=== PATIENT | male | born 1960 | race Caucasian/White ===

== ENCOUNTER 2019-03-08 11:00 | Inpatient (IN) ==
[2019-03-08] MEDS ORDERED: Ketorolac 15 MG/ML VIAL IVP STA (11:23)
[2019-03-08 11:57] LABS: Basophils % 0.3 %; Eosinophils # 0.2 K/mcL (0.0-0.6); Eosinophils % 1.8 %; Hematocrit 46.5 % (37.5-50.1); Hemoglobin 16.5 g/dL (12.9-16.9); Immature Granulocytes % 0.3 % (0-4); Lymphocytes # 2.2 K/mcL (0.6-4.6); Lymphocytes % 24.1 %; Mean Corpuscular HGB Conc 35.5 g/dL (31.6-35.5); Mean Platelet Volume 10.6 fL (9.4-12.4); Monocytes # 0.5 K/mcL (0.0-1.3); Neutrophils # 6.1 K/mcL (1.6-8.9); Platelet Count 165 K/mcL (140-400); Red Cell Distribution Width 12.5 % (11.5-14.5); Segmented Neutrophils % 67.5 %
[2019-03-08 12:23] LABS: BUN/Creatinine Ratio 9 (6-26); Blood Urea Nitrogen 9 mg/dL (8-23); Calcium 9.8 mg/dL (8.6-10.3); Carbon Dioxide 24 mEq/L (23-29); Chloride 101 mEq/L (98-107); Glucose 227 mg/dL (70-105); Osmolality,Calculated 282 (280-300); Potassium 4.4 mEq/L (3.5-5.1); Sodium 133 mEq/L (136-145); Troponin I 0.47 ng/mL (< 0.04); eGFR For African Americans > 60 (> 60); eGFR For Non-African Americans > 60 (> 60)
[2019-03-08] MEDS ORDERED: *HR* FentaNYL (PF) 100 MCG/2 ML VIAL IVP ONE (12:33)
[2019-03-08] MEDS ORDERED: *HR* Heparin 5,000 UNIT/ML VIAL IVP ONE (12:39)
[2019-03-08] MEDS ORDERED: *HR* Heparin 5,000 UNIT/ML VIAL IVP PRN ×2 (12:39)
[2019-03-08] MEDS: Heparin 25,000 UNIT/250 ML D5W 25,000 UNIT/250 ML IV.SOLN IVC SCH (13:27)
[2019-03-08] MEDS ORDERED: Nitroglycerin 1 INCH/GM PACKET TP ONE (13:28)
[2019-03-08 13:43] LABS: Heparin anti-factor XA UFH 0.03 IU/mL (0.30-0.70); INR 1.2; Prothrombin Time 13.2 Seconds (9.4-12.1)
[2019-03-08] MEDS ORDERED: Morphine Sulfate 2 MG/ML SYRINGE IVP PRN (15:09)
[2019-03-08] MEDS ORDERED: Dextrose Gel 15 GM/37.5 ML TUBE PO PRN ×2 (15:12)
[2019-03-08] MEDS ORDERED: D5% in Water 1,000 ML IVC PRN (15:12)
[2019-03-08] MEDS ORDERED: *HR* Dextrose 50 % in Water (Syg) 50 ML SYRINGE IVP PRN (15:12)
[2019-03-08] MEDS: Acetaminophen 325 MG TABLET PO SCH (16:28)
[2019-03-08] MEDS: Insulin LISPRO 300 UNITS/3 ML VIAL SQ SCH ×2 (16:33→20:11)
[2019-03-08 16:44] LABS: Chol/HDL Ratio 4.5 (0-4.9)
[2019-03-08] MEDS ORDERED: *HR* FentaNYL (PF) 100 MCG/2 ML VIAL ONE (17:18)
[2019-03-08] MEDS: *HR* FentaNYL (PF) 100 MCG/2 ML VIAL IVP ONE ×2 (17:26→17:28)
[2019-03-08] MEDS ORDERED: Nitroglycerin 0.4 MG TAB.SUBL SL ONE (21:43)
[2019-03-08] MEDS: Nitroglycerin 0.4 MG TAB.SUBL SL PRN ×3 (21:46→21:57)
[2019-03-08] MEDS ORDERED: Morphine Sulfate 2 MG/ML SYRINGE IVP ONE (23:36)
[2019-03-09] MEDS: Acetaminophen 325 MG TABLET PO SCH ×4 (00:40→17:27)
[2019-03-09] MEDS: Insulin LISPRO 300 UNITS/3 ML VIAL SQ SCH ×4 (08:15→20:13)
[2019-03-09 09:15] LABS: Estimated Average Glucose 220 mg/dl
[2019-03-09] MEDS ORDERED: *HR* Heparin 10,000 UNIT/10 ML VIAL ONE (11:43)
[2019-03-09] MEDS ORDERED: Heparin 1,000 UNITS/500 mL 500 ML ONE (11:44)
[2019-03-09] MEDS ORDERED: Nitroglycerin 1,000 MCG/10 ML VIAL IV ONE (11:44)
[2019-03-09] MEDS ORDERED: ISOVUE-370 200 ML INFUS..BTL ONE (11:44)
[2019-03-09] MEDS ORDERED: 0.9 % Sodium Chloride 1,000 ML ONE ×2 (11:44→12:20)
[2019-03-09] MEDS: Heparin 25,000 UNIT/250 ML D5W 25,000 UNIT/250 ML IV.SOLN IVC SCH (11:58)
[2019-03-09] MEDS ORDERED: *HR* Midazolam HCl 2 MG/2 ML VIAL ONE ×3 (12:19→13:05)
[2019-03-09] MEDS ORDERED: *HR* FentaNYL (PF) 100 MCG/2 ML VIAL ONE ×2 (12:19→12:43)
[2019-03-09] MEDS ORDERED: Verapamil 5 MG/2 ML VIAL ONE (13:00)
[2019-03-10] MEDS: Acetaminophen 325 MG TABLET PO SCH ×5 (00:06→23:45)
[2019-03-10 05:11] LABS: BUN/Creatinine Ratio 19 (6-26); Blood Urea Nitrogen 18 mg/dL (8-23); Calcium 9.2 mg/dL (8.6-10.3); Carbon Dioxide 27 mEq/L (23-29); Chloride 104 mEq/L (98-107); Glucose 169 mg/dL (70-105); Osmolality,Calculated 286 (280-300); Potassium 4.3 mEq/L (3.5-5.1); Sodium 135 mEq/L (136-145); eGFR For African Americans > 60 (> 60); eGFR For Non-African Americans > 60 (> 60)
[2019-03-10 05:24] LABS: Troponin I 16.62 ng/mL (< 0.04)
[2019-03-10] MEDS ORDERED: Morphine Sulfate 2 MG/ML SYRINGE IVP ONE (07:48)
[2019-03-10] MEDS: Insulin LISPRO 300 UNITS/3 ML VIAL SQ SCH ×4 (07:50→20:43)
[2019-03-10] MEDS ORDERED: Aspirin Enteric Coated 81 MG Tablet PO SCH (09:00)
[2019-03-10] MEDS: Heparin 25,000 UNIT/250 ML D5W 25,000 UNIT/250 ML IV.SOLN IVC SCH (11:14)
[2019-03-10] MEDS: Nitroglycerin 0.4 MG TAB.SUBL SL PRN ×2 (11:34→11:44)
[2019-03-10] MEDS ORDERED: Morphine Sulfate 2 MG/ML SYRINGE IVP STA (11:35)
[2019-03-10 23:36] VITALS: BP 106/65
== END 2019-03-10 23:50 | disposition short-term general hospital (02) | DRG 190 ==
LOC: 2NENU 11:00 → EMEROOARM 11:00 → SUATTDRO 13:53 → 2NENU 15:08
PROVIDERS: ADMIT Internal Medicine; ATTEND Internal Medicine